=== PATIENT | male | born 1990 | race Caucasian/White ===

== ENCOUNTER 2016-11-01 11:01 | Observation (INO) | payer OTHER ==
[~2016-11-01] VITALS: Ht 193 cm; Wt 146.4 kg
[2016-11-01] MEDS ORDERED: ONDA8TAB6 PO (11:27)
[2016-11-01] MEDS ORDERED: SODIUM CHLORIDE 0.9% 1000ML 500 ML IV STA (11:28)
[2016-11-01] MEDS ORDERED: SODIUM CHLORIDE 0.9% 1000ML 1,000 ML IV STA (11:28)
[2016-11-01] MEDS ORDERED: ONDANSETRON INJ 2 MG/ML 2 ML VIAL IV STA (11:28)
[2016-11-01 11:41] LABS: COMPLETE YES; HEMATOCRIT 45.6 % (42-52); IG% 0.3 %; LYMPH % 8.7 %; LYMPH ABS # 0.65 K/uL (1.2-3.4); MEAN CORPUSCULAR HEMOGLOBIN 30.3 pg (25-34); MEAN CORPUSCULAR HGB CONC 34.4 g/dl (32-36); MEAN PLATELET VOLUME 11.5 fL (7.4-10.4); MONO % 6.4 %; NEUT % 84.6 %; PLATELET COUNT 182 K/uL (130-400); RED BLOOD COUNT 5.18 M/uL (4.7-6.1); WHITE BLOOD COUNT 7.46 K/uL (4.8-10.8)
[2016-11-01] MEDS ORDERED: OPTIRAY 320 IV PRN (11:45)
[2016-11-01] MEDS: MoRPHine SULFATE 4 MG/ML 1 ML CARP\\VIAL IV PRN ×2 (11:51→14:08)
--- NOTE | 2016-11-01 11:56 | DIAGNOSTIC IMAGING REPORT ---
CHEST ONE VIEW PORTABLE HISTORY: Upper abdominal pain. COMPARISON: None. FINDINGS: The lungs are clear. Cardiac silhouette is normal in size. No pleural effusions. No pneumothorax. IMPRESSION: No acute process. Electronically signed by: Gregorio Garcia M.D. 11/01/2016 11:55 AM Dictated Date/Time: 11/01/2016 11:54 AM
[2016-11-01 12:01] LABS: BUN/CREATININE RATIO 13.1 (10-20); CALCIUM 9.1 mg/dl (8.5-10.1); CREATININE 1.2 mg/dl (0.60-1.40); POTASSIUM 3.5 mmol/L (3.5-5.1)
[2016-11-01 12:04] LABS: ALB/GLOB RATIO 1.1 (0.9-2)
--- NOTE | 2016-11-01 13:34 | DIAGNOSTIC IMAGING REPORT ---
ABDOMEN AND PELVIS CT WITH IV CONTRAST CT DOSE: 1820.11 mGy.cm HISTORY: Generalized abdominal pain. Assess for obstruction. TECHNIQUE: Multiaxial CT images of the abdomen and pelvis were performed following the use of intravenous contrast. COMPARISON STUDY: None. FINDINGS: The lung bases are clear. No pneumoperitoneum. No pneumatosis. No fractures within the foci is osseous structures. The liver, gallbladder, pancreas, spleen, adrenal glands, and left kidney are unremarkable. There is a punctate stone within the right kidney. No hydronephrosis. No retroperitoneal lymphadenopathy. Trace pelvic fluid. Trace fluid within the right side of the mesentery. The bladder is unremarkable. Suboptimal evaluation for obstruction due to the lack of oral contrast. There is no bowel wall thickening. Normal appendix. Multiple dilated gas and fluid-filled loops of jejunum seen within the left side the abdomen. These measure up to 4.4 cm in diameter. The distal ileal loops are decompressed. However, there is no clear transition point. There appear to be a few decompressed loops of proximal jejunum. IMPRESSION: 1. Multiple dilated gas and fluid-filled loops of small bowel located within the left side the abdomen. A clear transition point is difficult to identify given the lack of oral contrast. However, these findings likely represent a small bowel obstruction. Of note, the bowel loops proximal and distal to the site of obstruction are partially decompressed. There is also a trace amount of fluid within the pelvis. Therefore, these findings raise the possibility of a closed loop type obstruction. Clinical correlation recommended. 2. Normal appendix. 3. Right-sided nephrolithiasis. No hydronephrosis. 4. Trace mesenteric and pelvic fluid. 5. Findings were discussed with Dr. Colón at 1:32 PM on 11/01/2016. Electronically signed by: Gregorio Garcia M.D. 11/01/2016 1:32 PM Dictated Date/Time: 11/01/2016 1:14 PM
[2016-11-01] MEDS ORDERED: HYDROmorphone INJ 1 MG/ML SYR IV PRN (14:15)
--- NOTE | 2016-11-01 14:41 | HISTORY & PHYSICAL EXAMINATION ---
DATE OF ADMISSION: 11/01/2016 Seen in the Emergency Room at 2:20 in the afternoon. SUMMARY: This is a 26-year-old gentleman that I was called to see by Dr. Colón who presented with some abdominal pain and emesis, was evaluated by CAT scan and found what appears to be no transition point but possibly an internal hernia. We were asked to see him for such. The patient's story said yesterday he developed some abdominal pain in the epigastric area and felt better after he vomited and then progressively got a little bit worse, was seen at primary care and was referred here where a CT scan was findings. The patient denied any previous history of any abdominal surgery. Denies any previous trauma. His health has overall been in good overall condition except he does have sleep apnea and wears CPAP. He takes no medicines. He has no known allergies. Since he has been down in the Emergency Room, he has received some morphine and the pain subsided from the level when he came in at about 6/10 now may be returned to about 2/10. He is not nauseated. He just feels bloated. PHYSICAL EXAMINATION: VITAL SIGNS: His last vitals shows a temperature of 36.8, a pulse 72, respirations 16, blood pressure 148/68, O2 sats 96 on room air. GENERAL: He is resting comfortably at this time. HEAD, EYES, EARS, NOSE, AND THROAT: Head is normocephalic. Eyes PERRLA. Sclerae is nonicteric. There is no cervical lymphadenopathy. HEART: Normal. LUNGS: Clear. ABDOMEN: Slightly obese but is soft. There is no localized tenderness. May have some epigastric distention, but minimally as far as no significant fullness and definitely no masses. There is no point tenderness. He does not have any inguinal hernias. EXTREMITIES: Grossly normal. LABORATORY STUDIES: When he came in showed his white count to be 7.46. There is no left shift. Hemoglobin is 15.7. Chemistries: BUN is 16, creatinine is slightly elevated at 1.20. The potassium is 3.5. PLAN: At this point, I discussed the situation with the patient. Certainly I have no physical finding at this time to warrant an exploration, although given the condition of the CAT scan finding it merits further followup exams. Therefore at this time we will admit the patient, give him some fluid status and replacement and monitor closely, repeat some white count in the morning. If the clinical picture deteriorates at any time then certainly we will approach him surgically but at this point in summary I do not think I have enough clinical findings to suspect and proceed with surgery. The patient is comfortable with that decision.
[2016-11-01] MEDS ORDERED: IV FLUIDS COMPLETED PRN (14:45)
[2016-11-01] MEDS: LACTATED RINGER'S 1000ML 1,000 ML IV SCH ×2 (15:30→20:44)
[2016-11-01 15:48] VITALS: BP 135/84; PULSE 65; TEMP 36.5; O2SAT 96; Ht 193 cm; Wt 146.4 kg
--- NOTE | 2016-11-01 17:15 | EMERGENCY ROOM VISIT NOTE ---
History Report prepared by Ramón: Nestor Waddell Under the Supervision of: Dr. Gerard Colón M.D. First contact with patient: 11:23 Chief Complaint: ABDOMINAL PAIN Stated Complaint: REFERRED BY LEILANI BRAND UPPER ABDOMINAL PAIN History of Present Illness The patient is a 26 year old male who presents to the Emergency Room with complaints of constant upper abdominal pain since yesterday. The pain became worse today, and is currently rated 6/10 in severity. The patient has also been nauseous since yesterday. He vomited once yesterday morning. The patient denies any urinary symptoms. The patient was seen by [facility] yesterday. He had an X-ray that was concerning for a small bowel obstruction. The patient was given Zofran for nausea, but was not given anything for pain. The patient never had pain like this before. His last bowel movement was last night, which may have been more firm than usual. The patient did not have anything to eat today. Source of History: patient Onset: yesterday Position: abdomen (upper) Symptom Intensity: 6/10 Timing: constant Associated Symptoms: + nausea, + vomiting, No diarrhea, No urinary symptoms Review of Systems See HPI for pertinent positives & negatives. A total of 10 systems reviewed and were otherwise negative. Past Medical & Surgical Medical Problems: (1) Bowel obstruction (2) Sleep apnea Family History Cancer Diabetes mellitus Social History Smoking Status: Never Smoker Alcohol Use: occasionally Housing Status: lives with friends Occupation Status: [employer] student Current/Historical Medications Scheduled PRN Ondansetron Hcl (Zofran), Unknown Dose PO UD PRN for Nausea Allergies Coded Allergies: No Known Allergies (Unverified , 11/01/16) Physical Exam Vital Signs Date Time Temp Pulse Resp B/P Pulse Ox O2 Delivery O2 Flow Rate FiO2 11/01/16 13:03 72 16 148/68 96 Room Air 11/01/16 11:11 36.8 85 18 147/93 96 Room Air Physical Exam GENERAL: Patient is in no acute distress. HEENT: No acute trauma, normocephalic atraumatic, mucous membranes moist, no nasal congestion, no scleral icterus. NECK: No stridor, no adenopathy, no meningismus, trachea is midline. LUNGS: Clear to auscultation bilaterally, no wheeze, no rhonchi, breath sounds equal. HEART: Without murmurs gallops or rubs, regular rate and rhythm. ABDOMEN: Soft, mildly tender in the upper quadrants and epigastrium, no lower quadrant tenderness, bowel sounds positive, no hernias, no peritonitis. EXTREMITIES: No cyanosis or edema, full range of motion of all the joints without pain or difficulty, no signs for acute trauma. NEUROLOGIC: Oriented x 3, no acute motor or sensory deficits, no focal weakness. SKIN: No rash, no jaundice, no diaphoresis. Medical Decision & Procedures ER Provider Diagnostic Interpretation: X ray results and stated below per my interpretation and radiologist interpretation. Other radiology results and stated below per my review and radiologist interpretation: CHEST ONE VIEW PORTABLE HISTORY: Upper abdominal pain. COMPARISON: None. FINDINGS: The lungs are clear. Cardiac silhouette is normal in size. No pleural effusions. No pneumothorax. IMPRESSION: No acute process. Electronically signed by: Gregorio Garcia M.D. 11/01/2016 11:55 AM Dictated Date/Time: 11/01/2016 11:54 AM ABDOMEN AND PELVIS CT WITH IV CONTRAST CT DOSE: 1820.11 mGy.cm HISTORY: Generalized abdominal pain. Assess for obstruction. TECHNIQUE: Multiaxial CT images of the abdomen and pelvis were performed following the use of intravenous contrast. COMPARISON STUDY: None. FINDINGS: The lung bases are clear. No pneumoperitoneum. No pneumatosis. No fractures within the foci is osseous structures. The liver, gallbladder, pancreas, spleen, adrenal glands, and left kidney are unremarkable. There is a punctate stone within the right kidney. No hydronephrosis. No retroperitoneal lymphadenopathy. Trace pelvic fluid. Trace fluid within the right side of the mesentery. The bladder is unremarkable. Suboptimal evaluation for obstruction due to the lack of oral contrast. There is no bowel wall thickening. Normal appendix. Multiple dilated gas and fluid-filled loops of jejunum seen within the left side the abdomen. These measure up to 4.4 cm in diameter. The distal ileal loops are decompressed. However, there is no clear transition point. There appear to be a few decompressed loops of proximal jejunum. IMPRESSION: 1. Multiple dilated gas and fluid-filled loops of small bowel located within the left side the abdomen. A clear transition point is difficult to identify given the lack of oral contrast. However, these findings likely represent a small bowel obstruction. Of note, the bowel loops proximal and distal to the site of obstruction are partially decompressed. There is also a trace amount of fluid within the pelvis. Therefore, these findings raise the possibility of a closed loop type obstruction. Clinical correlation recommended. 2. Normal appendix. 3. Right-sided nephrolithiasis. No hydronephrosis. 4. Trace mesenteric and pelvic fluid. 5. Findings were discussed with Dr. Colón at 1:32 PM on 11/01/2016. Electronically signed by: Gregorio Garcia M.D. 11/01/2016 1:32 PM Dictated Date/Time: 11/01/2016 1:14 PM Laboratory Results 11/01/16 11:25 Red Blood Count 5.18, Mean Corpuscular Volume 88.0, Mean Corpuscular Hemoglobin 30.3, Mean Corpuscular Hemoglobin Concent 34.4, Mean Platelet Volume 11.5, Neutrophils (%) (Auto) 84.6, Lymphocytes (%) (Auto) 8.7, Monocytes (%) (Auto) 6.4, Eosinophils (%) (Auto) 0.0, Basophils (%) (Auto) 0.0, Neutrophils # (Auto) 6.31, Lymphocytes # (Auto) 0.65, Monocytes # (Auto) 0.48, Eosinophils # (Auto) 0.00, Basophils # (Auto) 0.00 11/01/16 11:25 Test 11/01/16 11:25 11/01/16 11:51 White Blood Count 7.46 K/uL (4.8-10.8) Red Blood Count 5.18 M/uL (4.7-6.1) Hemoglobin 15.7 g/dL (14.0-18.0) Hematocrit 45.6 % (42-52) Mean Corpuscular Volume 88.0 fL (80-100) Mean Corpuscular Hemoglobin 30.3 pg (25-34) Mean Corpuscular Hemoglobin Concent 34.4 g/dl (32-36) Platelet Count 182 K/uL (130-400) Mean Platelet Volume 11.5 fL (7.4-10.4) Neutrophils (%) (Auto) 84.6 % Lymphocytes (%) (Auto) 8.7 % Monocytes (%) (Auto) 6.4 % Eosinophils (%) (Auto) 0.0 % Basophils (%) (Auto) 0.0 % Neutrophils # (Auto) 6.31 K/uL (1.4-6.5) Lymphocytes # (Auto) 0.65 K/uL (1.2-3.4) Monocytes # (Auto) 0.48 K/uL (0.11-0.59) Eosinophils # (Auto) 0.00 K/uL (0-0.5) Basophils # (Auto) 0.00 K/uL (0-0.2) RDW Standard Deviation 41.6 fL (36.4-46.3) RDW Coefficient of Variation 12.9 % (11.5-14.5) Immature Granulocyte % (Auto) 0.3 % Immature Granulocyte # (Auto) 0.02 K/uL (0.00-0.02) Anion Gap 12.0 mmol/L (3-11) Est Creatinine Clear Calc Drug Dose 146.0 ml/min Estimated GFR () 96.1 Estimated GFR (Non- 83.0 BUN/Creatinine Ratio 13.1 (10-20) Calcium Level 9.1 mg/dl (8.5-10.1) Total Bilirubin 0.9 mg/dl (0.2-1) Aspartate Amino Transf (AST/SGOT) 20 U/L (15-37) Alanine Aminotransferase (ALT/SGPT) 50 U/L (12-78) Alkaline Phosphatase 60 U/L (45-117) Total Protein 8.1 gm/dl (6.4-8.2) Albumin 4.2 gm/dl (3.4-5.0) Globulin 3.9 gm/dl (2.5-4.0) Albumin/Globulin Ratio 1.1 (0.9-2) Lipase 97 U/L (73-393) Lactic Acid Level 1.0 mmol/L (0.4-2.0) Laboratory results reviewed by me. Medications Administered Medications (Trade) Dose Ordered Sig/Daniele Route Start Time Stop Time Status Last Admin Dose Admin Sodium Chloride (Nss 1000ml) 500 ml @ 999 mls/hr Q31M STAT IV 11/01/16 11:28 11/01/16 11:58 DC 11/01/16 11:51 999 MLS/HR Ondansetron HCl 4 mg 4 mg NOW STAT IV 11/01/16 11:28 11/01/16 11:31 DC 11/01/16 11:50 4 MG Sodium Chloride (Nss 1000ml) 1,000 ml @ 200 mls/hr Q5H STAT IV 11/01/16 11:28 11/01/16 15:56 DC 11/01/16 12:11 200 MLS/HR Morphine Sulfate (MoRPHine SULFATE INJ) 4 mg Q30M PRN IV 11/01/16 11:30 11/01/16 15:56 DC 11/01/16 14:08 4 MG ED Course 1127: The patient was evaluated in room C4. A complete history and physical exam was performed. 1128: NSS 1000 ml @ 200 mls/hr, Zofran 4 mg IV, NSS 500 ml @ 999 mls/hr. 1130: Morphine Sulfate 4 mg IV. 1337: Spoke with Dr. Marin, Surgeon. The patient appears to have a small bowel obstruction. Surgery will be in to see the patient. Medical Decision Differential diagnosis includes ileus, bowel obstruction, viral illness, dehydration, bowel rupture, electrolyte imbalance, anemia. There is no leukocytosis or concerning anemia. No significant electrolyte abnormality, kidney failure, hepatitis or pancreatitis. Lactic acid level is not elevated making bowel ischemia less likely. Chest x-ray does not show pneumonia or free air. Obstruction series shows evidence for a small bowel obstruction, possibly an internal hernia. I talked to the patient about his findings. I did talk to the on-call surgeon. Admission/observation is warranted. The patient did receive IV saline, IV morphine and IV Zofran, he seems to be resting comfortably. He is not toxic in appearance. Consults Time Called: 1335 Consulting Physician: Dr. Marin, Surgeon Returned Call: [phone]: Spoke with Dr. Marin, Surgeon. The patient appears to have a small bowel obstruction. Surgery will be in to see the patient. Impression Primary Impression: Small bowel obstruction Scribe Attestation The scribe's documentation has been prepared under my direction and personally reviewed by me in its entirety. I confirm that the note above accurately reflects all work, treatment, procedures, and medical decision making performed by me. Departure Information Dispostion Being Evaluated By Surgeon Referrals No Doctor, Assigned (PCP) Patient Instructions [facility]
[2016-11-01 23:02] VITALS: BP 127/80; PULSE 76; TEMP 37.1; O2SAT 100
[2016-11-02] MEDS: LACTATED RINGER'S 1000ML 1,000 ML IV SCH (03:05)
[2016-11-02 06:28] LABS: BASO % 0.2 %; BASO ABS # 0.01 K/uL (0-0.2); COMPLETE YES; EOS % 0.9 %; HEMATOCRIT 39.2 % (42-52); IG% 0.3 %; LYMPH % 19.4 %; LYMPH ABS # 1.14 K/uL (1.2-3.4); MEAN CORPUSCULAR HEMOGLOBIN 30.2 pg (25-34); MEAN CORPUSCULAR HGB CONC 33.2 g/dl (32-36); MEAN PLATELET VOLUME 11.3 fL (7.4-10.4); MONO % 13.8 %; NEUT % 65.4 %; PLATELET COUNT 151 K/uL (130-400); RED BLOOD COUNT 4.31 M/uL (4.7-6.1); WHITE BLOOD COUNT 5.87 K/uL (4.8-10.8)
--- NOTE | 2016-11-02 06:38 | Discharge Instructions ---
Discharge Instructions Visit Reason for Visit: Bowel Obstruction Discharge Discharge Diagnosis / Problem: resolving bowel obstruction Discharge Goals Goal(s): Decrease discomfort Activity Recommendations Activity Limitations: resume your previous activity Anesthesia . Post Anesthesia Instructions: If you have had General Anesthesia or IV Sedation: * Do not drive today. * Resume driving when surgeon permits. * Do not make important decisions or sign legal documents today. * Call surgeon for: 1. Temperature elevations greater than 101 degrees F. 2. Uncontrollable pain. 3. Excessive bleeding. 4. Persistent nausea and vomiting. 5. Medication intolerance (nausea, vomiting or rash). * For nausea and vomiting use only clear liquids such as: tea, soda, bouillon until nausea subsides, then gradually increase diet as tolerated. * If you have any concerns or questions, call your surgeon's office. If physician is unavailable and it is an emergency, call 911 or go to the nearest emergency room. . Instructions / Follow-Up Instructions / Follow-Up call [phone] for any problems f/u with primary provider service Diet Recommendations Recommended Home Diet: resume previous diet Medical Emergencies . Who to Call and When: Medical Emergencies: If at any time you feel your situation is an emergency, please call 911 immediately. . Non-Emergent Contact . . "Provider Documentation" section prepared by Anshu Marin.
[2016-11-02 06:45] LABS: BUN/CREATININE RATIO 13.6 (10-20); CALCIUM 8.2 mg/dl (8.5-10.1); POTASSIUM 3.8 mmol/L (3.5-5.1)
--- NOTE | 2016-11-02 06:52 | SURGERY PROGRESS NOTE ---
DATE: 11/02/2016 Rashid feels fine. He has had no further abdominal discomfort. Actually he is pretty much back to normal as he had been a few days ago. His last vitals showed a temperature of 37.1, pulse 76, respiration 18, blood pressure 127/80, O2 sats 100% but he wears CPAP. The hematology this morning, white count is 5.87, there is no left shift, hemoglobin is 13. Chemistries are pending. His abdomen is completely benign. We have kept him n.p.o. At this point, we will start a regular diet that he tolerates that is what I am sure he will, he can be discharged. He could follow up with the primary provider service and to call our office p.r.n. if there is any need. He does not need any prescription from my point of view. JESÚS
[2016-11-02 07:38] VITALS: BP 114/76; PULSE 71; TEMP 36.6; O2SAT 96
[2016-11-02 09:30] VITALS: BP 114/76; PULSE 71; TEMP 36.6; O2SAT 96
--- NOTE | 2016-11-05 15:35 | DISCHARGE SUMMARY ---
PRIMARY DISCHARGE DIAGNOSIS: Gastroenteritis. HOSPITAL COURSE: The patient is a 26-year-old male who presented to the Emergency Department with abdominal pain, nausea and vomiting that began the day prior. Evaluation in the ED included a CT scan which showed some dilated bowel, a possibility of an internal hernia or closed loop obstruction. He did not have any previous abdominal surgeries. His exam was relatively benign. His vitals were stable. He was admitted to surgical service for observation. By the next day, his pain was resolved. He had no further nausea or vomiting. He was able to tolerate an advancing diet. He was stable for discharge once he was tolerating regular diet. DISCHARGE INSTRUCTIONS: Discharge home. 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 He may contact our office if he has any further difficulties or return to the Emergency Department. No prescriptions were necessary.
== END 2016-11-02 09:48 | disposition home or self-care (01) ==
LOC: ENRESERVDT → ENRESERVTM → C.EDB 11:04 → C.MSW 14:18
PROVIDERS: ADMIT Surgery; ATTEND Surgery
DX: K56.60 Unspecified intestinal obstruction (principal); G47.30 Sleep apnea, unspecified; Z83.3 Family history of diabetes mellitus